=== PATIENT | female | born 1985 | race Caucasian/White ===

== ENCOUNTER 2017-11-01 20:38 | Inpatient (IN) ==
[2017-11-01 17:19] LABS: Basophils % 0.3 %; Eosinophils # 0.2 K/mcL (0.0-0.6); Eosinophils % 1.6 %; Hematocrit 40.4 % (35.3-44.9); Hemoglobin 14.3 g/dL (11.5-15.4); Immature Granulocytes % 0.4 % (0-4); Lymphocytes # 3.6 K/mcL (0.6-4.6); Lymphocytes % 26.8 %; Mean Corpuscular HGB Conc 35.4 g/dL (31.6-35.5); Mean Corpuscular Hemoglobin 32.9 pg (28.0-33.3); Mean Corpuscular Volume 92.9 fL (83.0-100.0); Mean Platelet Volume 10.4 fL (9.4-12.4); Monocytes # 0.9 K/mcL (0.0-1.3); Monocytes % 6.9 %; Neutrophils # 8.6 K/mcL (1.6-8.9); Platelet Count 344 K/mcL (140-400); Red Blood Count 4.35 M/mcL (3.82-4.97); Red Cell Distribution Width 12.4 % (11.5-14.5)
[2017-11-01 17:35] LABS: Amphetamine Screen,Urine Negative ng/mL (Cutoff=1000); Barbiturate Screen,Urine Negative ng/mL (Cutoff=200); Benzodiazepines Screen,Urine Negative ng/mL (Cutoff=200); Cannabinoid Screen,Urine Negative ng/mL (Cutoff = 50); Cocaine Screen,Urine Negative ng/mL (Cutoff= 300); Creatinine,Urine 35 mg/dL; Opiate Screen,Urine Negative ng/mL (Cutoff=300); Phencyclidine Screen,Urine Negative ng/mL (Cutoff=25); Protein/Creatinine Ratio,Urine 0.23 mg/mg (0.00-0.20)
[2017-11-01 17:37] LABS: Alanine Aminotransferase 17 Units/L (7-52); Aspartate Amino Transferase 22 Units/L (13-39); BUN/Creatinine Ratio 18 (6-26); Blood Urea Nitrogen 10 mg/dL (6-20); Lactate Dehydrogenase 156 Units/L (140-271); Uric Acid 4.5 mg/dL (2.3-7.6); eGFR For African Americans > 60 (> 60); eGFR For Non-African Americans > 60 (> 60)
--- NOTE | 2017-11-01 18:11 | OB/GYN Progress Note ---
Date of Encounter: 11/01/17 Time of Encounter: 18:07 - Assessment and Plan (1) 38 weeks gestation of Current Visit: Yes Status: Acute Patient admitted for observation (2) Elevated BP without diagnosis of hypertension Current Visit: Yes Status: Acute PIH labs and serial bps Discussed POC with Dr. Henry (3) Proteinuria affecting in third trimester Current Visit: Yes Status: Acute Protein creat ration WNL Subjective - Subjective Principal diagnosis: PIH evaluation Interval history: Patient is a 32 y/o @ 38w1d sent from OB office for PIH evaluation due to elevated BP and protein in urine. BP in office was 150/100. Patient denies headache, visual disturbances or epigastric pain. Patient reports +FM, denies LOF or VB. Patient does reports some mild swelling in feet and hands. Antepartum ROS: movement normal, no loss of fluid, no vaginal bleeding, no contractions Objective - Vital Signs Vital Signs: Intake and Output 11/01/17 11/01/17 11/01/17 07:59 15:59 23:59 Other: Weight 109.7 kg Patient Weight 11/01/17 23:59 Weight 109.7 kg - Exam FHR: auscultation normal, category 1 FHR comments: 120 bpm moderate amount of variability + 15x15 accels no decels noted. Contractions irregular Auscultation: bilateral: normal Abdomen: Present: normal appearance, soft, gravid Uterus: Present: normal, firm Comments: 2+ DTRs no clonus. 1+ edema bilateral lower extremities. - Labs Labs: Abnormal lab results WBC 13.4 K/mcL (4.3-11.1) H 11/01/17 16:55 Creatinine 0.55 mg/dL (0.60-1.20) L 11/01/17 16:55 Protein/Creatinin Ratio 0.23 mg/mg (0.00-0.20) H 11/01/17 16:55
--- NOTE | 2017-11-01 18:28 | Event Note ---
Date of Encounter: 11/01/17 Time of Encounter: 18:26 Discussed patient's lab results and BPs with Dr. Henry. Dr. Henry orders BPs hourly x 2 if BPs are above 140/90 to admit for delivery. Patient may have a regular diet at this time.
[~2017-11-01 20:38] MED LIST: *HR* Nalbuphine 10 MG/ML AMPUL IVP PRN; Famotidine 20 MG/2 ML VIAL IVP PRN; Naloxone 0.4 MG/ML INJ IVP PRN; Ondansetron 4 MG/2 ML VIAL IVP PRN
[2017-11-01] MEDS ORDERED: Ringers Solution, Lactated 1,000 ML IVC SCH (20:45)
--- NOTE | 2017-11-01 20:51 | OB/GYN History & Physical ---
Date of Encounter: 11/01/17 Time of Encounter: 20:42 Assessment and Plan (1) 38 weeks gestation of Current visit: Yes Status: Acute admitted for delivery (2) Proteinuria affecting in third trimester Current visit: Yes Status: Acute (3) Elevated BP without diagnosis of hypertension Current visit: Yes Status: Acute Will start Labetalol 100mg po BID History of Present Illness Chief complaint: Elevated BP HPI: Ms. Santos is a 32 year old female @ 38w1d sent from OB office for PIH evaluation due to elevated BP and protein in urine. BP in office was 150/100. Patient denies headache, visual disturbances or epigastric pain. Patient reports +FM, denies LOF or VB. Patient does reports some mild swelling in feet and hands. BPs continue after 4 hours of observation to be 153/92. Dr. Henry recommends IOL for gestational HTN at this time. Blood type:O+ Rubella: Immune Hep B: Nonreactive GBS: Negative Past Med Surg Social Fam HX - Past Medical History Source: patient Medical history: no medical history Psychiatric history: no psych history - Past Surgical History Surgical History: splenectomy - Social History Smoking Status: Never smoker Smokeless Tobacco Status: No Alcohol use: none Drug use: none Obstetrical History - Pregnancies : 1 Para: 0 Term: 0 : 0 Ab's: 0 Livin Medications and Allergies 3 Allergy/AdvReac Type Severity Reaction Status Date / Time No Known Allergies Allergy Verified 11/01/17 17:04 Review of System OB - Constitutional Constitutional ROS IM: no chills, no fever(s), no headache(s) - Cardiovascular Cardiovascular: edema, pedal edema, no chest pain, no lightheadedness, no palpitations, no syncope - Respiratory Respiratory: no cough - Gastrointestinal Gastrointestinal: no abdominal pain, no constipation, no cramping, no heartburn , no nausea, no vomiting - Genitourinary Genitourinary: no abnormal vaginal bleeding, no dysuria, no flank pain, no pelvic pain, no urinary frequency, no urinary urgency, no vaginal discharge, no vaginal odor, no vaginal pruritis - Neurological Nerological: no dizziness, no headache(s), no syncope Exam - Constitutional Constitutional: well developed, well nourished, no acute distress, average body habitus - HEENT HEENT: Normocephaly, Mucus Membranes Moist - Neck Neck exam: full ROM, supple - Lungs Respiratory exam: CTAB - Cardiovascular Cardiovascular exam: RRR, +S1, +S2 - Abdomen Abdomen: Present: bowel sounds normal, gravid, non tender - Extremities Extremities exam: full ROM Deep Tendon Reflex Grade: 2+ Normal - Uterus Uterus exam: Present: normal size, normal contour - Comments Comments: FHR 125 bpm moderate amount of variability +15x15 accels no decels noted. CAt. 1 tracing. Contractions 2-5 min apart. Results Result Diagrams: 11/01/17 16:55 11/01/17 16:55 Abnormal lab results WBC 13.4 K/mcL (4.3-11.1) H 11/01/17 16:55 Creatinine 0.55 mg/dL (0.60-1.20) L 11/01/17 16:55 Protein/Creatinin Ratio 0.23 mg/mg (0.00-0.20) H 11/01/17 16:55 All other labs normal. - VTE Reasons for not Prescribing Prophylaxis: Treatment not Indicated - Low risk for VTE
--- NOTE | 2017-11-01 21:47 | OB Labor Progress Note ---
Date of Encounter: 11/01/17 Time of Encounter: 21:45 Labor Progress Note - Subjective Subjective: Patient resting in bed. Discussed POC with patient. Patient denies any questions or concerns. - Cervix Cervix: 1/thick/-3 - Heart Tones Heart Tones: 125 bpm moderate amount of variability +15x15 accels no decels noted. CAt. 1 tracing - [place]: contractions 2-3 min apart - Interventions Interventions: SVE, Soliman catheter placed without if difficulty 40cc sterile water placed in soliman balloon. Patient tolerated well. - Plan Plan: Continue labor management
[2017-11-02] MEDS ORDERED: miSOPROStol 25 MCG TABLET PO SCH ×2 (03:45→04:00)
[2017-11-02] MEDS ORDERED: Oxytocin 20 units/ LR 1000 mL 20 UNIT/1,000 ML BAG IVC SCH ×2 (08:45→15:47)
--- NOTE | 2017-11-02 08:48 | OB Labor Progress Note ---
Date of Encounter: 11/02/17 Time of Encounter: 08:46 Labor Progress Note - Subjective Subjective: Patient comfortable and denies any complaints. - Vital Signs Vital Signs: 126/85 - Cervix Cervix: 4.5/80/-3 - Heart Tones Heart Tones: 123. category 1 tracing - Preston Preston: q 1.5- 2 minutes - Plan Plan: Will give order for Pitocin. Patient is not feeling her contractions that are on the monitor and minimal cervical changes.
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
[2017-11-02] MEDS ORDERED: Bupivacaine-MPF 0.25% 10 ML VIAL EP ONE (10:30)
[2017-11-02] MEDS ORDERED: *HR* FentaNYL (PF) 100 MCG/2 ML VIAL EP ONE (10:30)
[2017-11-02] MEDS ORDERED: Epidural Premix (fent/bupiv) 110 ML EP SCH (10:30)
[2017-11-02] MEDS ORDERED: Epidural Premix (fent/bupiv) 110 ML EP ONE (10:48)
--- NOTE | 2017-11-02 11:54 | Anesthesia Procedures ---
Date of Encounter: 11/02/17 Time of Encounter: 10:50 Procedures: Anesthesia - Epidural/Spinal Patient ID/Chart reviewed: Yes Patient examined: Yes OB Eval: Gestational age: 38 OB Eval: : 1 OB Eval: Hx Para: 0 OB Eval: Dilated at (cm): 6 OB Eval: Contractions: Non-stressed pattern Consent Obtained: Yes Supplemental Oxygen: None/Room Air Site Prep: Aseptic Technique, Sterile prep and drape, Povidone-Iodine 1% Patient position: upright Local Anesthetic: Lidocaine 1% Amount of Local Anesthetic used: 5 Touhy Needle Gauge: 18 Touhy Needle Depth (cm): 7 Catheter Depth at Skin (cm): 18 Test Dose (1.5% Lido + Epi): Volume given (mls): 3 Test Dose Result: Negative Loading Dose: 0.25% Marcaine (mls): 8 Loading Dose: Fentanyl (mcg): 100 Loading Dose Administered: Thru Catheter Infusion Rate (mls/hr): 0 (not started. complete, baby's heartrate dipping) Catheter Secured in Place: Tegaderm, Tape Interspace Used: L3-L4 Loss of Resistance (ALISSON): Yes Blood: No CSF: No Paresthesia: No Vitals + FHT's: 3 Vital Signs Time 1129 1130 1135 0985 [id number] BP 162/76 172/82 141/84 144/75 71 Pulse 75 60 75 72 110 FHTs 120 120 110 110
--- NOTE | 2017-11-02 12:15 | OB Labor Progress Note ---
Date of Encounter: 11/02/17 Time of Encounter: 11:50 Labor Progress Note - Subjective Subjective: Pt reports pain is improving with epidural - Cervix Cervix: 9.5/100/0 - Heart Tones Heart Tones: Category II, moderate variability, good scalp stim. - Colby Colby: 2-3 minutes - Interventions Interventions: FSE placed, pt repositioned multiple times, O2, IV fluid bolus - Plan Plan: COntinue to monitor. Anticipate .
--- NOTE | 2017-11-02 14:50 | OB/GYN Procedure Note ---
Delivery - Delivery Date: 11/02/17 Provider: Marely Kaplan (Hanna Lai DO PGY2) Intrapartum events: none Delivery induction: oxytocin, soliman, misoprostol Delivery monitor: external FHT, external uterine, internal FHT Anesthesia: epidural Estimated Blood Loss: 200 - (s) A Delivery Date: 11/02/17 Infant Delivery Time: 14:26 Presentation: vertex Position: ROP Route of delivery: Gender: Male Viability: Viable Pounds: 6 Ounces: 12 Weight Gram: 3055 kg at 1 minute: 9 at 5 mins: 9 Shoulder Dystocia: not encountered Specimens collected: cord blood Placenta: spontaneous Cord: nuchal cord (x2), 3 umbilical vessels, nuchal reduced - Repair Episiotomy: none Laceration Description: None - Complications Delivery complications: none Delivery comments: Patient progressed to complete and began pushing. Under maternal effort a viable male was delivered vertex, ROP with APGARS 9/9. The head delivered ROP and a nuchal x2 was discovered and easily reduced. The shoulders delivered easily and the body quickly followed. Baby was placed on maternal abdomen. Once pulsation stopped the cord was clamped and cut. The placenta delivered easily, intact with a 3 vessel cord. No lacerations were encountered. Sponge count completed and all were accounted for. Mother and baby were left bonding skin to skin in labor and delivery. Hanna Lai DO PGY2 present and assisted with delivery. I was present for the entire delivery including the delivery of the placenta. Bleeding minimal at the end of the procedure. Marely Kaplan DO - Disposition Mom disposition: stable in LDR [place] disposition: stable in LDR
[2017-11-02] MEDS ORDERED: Acetaminophen 325 MG TABLET PO PRN (15:47)
[2017-11-02] MEDS: Ibuprofen 600 MG TABLET PO PRN (20:14)
[2017-11-03] MEDS: Ibuprofen 600 MG TABLET PO PRN ×2 (04:40→09:51)
[2017-11-03 08:10] VITALS: BP 129/74
--- NOTE | 2017-11-03 08:45 | Discharge Summary ---
Date of Encounter: 11/03/17 Time of Encounter: 08:43 - Discharge Diagnosis (1) Vaginal delivery Priority: Primary Status: Acute Comments: Pt reports pain well controlled with PO meds Tolerating regular diet Voiding independently Passing flatus, but no BM yet Ambulating independently Lochia light well Discharge home today (2) Breast feeding status of mother Priority: Secondary Status: Acute - Discharge Medications Prescriptions: Ibuprofen [Motrin] 600 mg PO Q6HR PRN #30 tablet PRN Reason: Cramping Docusate [Colace] 100 mg PO BID #30 capsule Home Medications: Acetaminophen [Tylenol] 650 mg PO Q6HR PRN tablet 11/03/17 [Rx] Docusate [Colace] 100 mg PO BID #30 capsule 11/03/17 [Rx] Ibuprofen [Motrin] 600 mg PO Q6HR PRN #30 tablet 11/03/17 [Rx] Vit/FA 1 each PO DAILY tablet 11/03/17 [Rx] Allergies/Adverse Reactions: 3 Allergy/AdvReac Type Severity Reaction Status Date / Time No Known Allergies Allergy Verified 11/01/17 17:04 Data Procedures and tests throughout hospitalization: Laboratory Tests 11/01/17 11/01/17 11/01/17 16:55 16:55 16:55 WBC 13.4 H RBC 4.35 Hgb 14.3 Hct 40.4 MCV 92.9 MCH 32.9 MCHC 35.4 RDW 12.4 Plt Count 344 MPV 10.4 Immature Gran % 0.4 Seg Neutrophils % 64.0 Lymphocytes % 26.8 Monocytes % 6.9 Eosinophils % 1.6 Basophils % 0.3 Neutrophils # 8.6 Lymphocytes # 3.6 Monocytes # 0.9 Eosinophils # 0.2 Basophils # 0.0 BUN 10 Creatinine 0.55 L Est GFR ( Amer) > 60 Est GFR (Non-Af Amer) > 60 BUN/Creatinine Ratio 18 Uric Acid 4.5 AST 22 ALT 17 Lactate Dehydrogenase 156 Urine Creatinine 35 Protein/Creatinin Ratio 0.23 H Urine Total Protein 8 Urine Opiates Screen Negative Ur Barbiturates Screen Negative Ur Phencyclidine Scrn Negative Ur Amphetamines Screen Negative U Benzodiazepines Scrn Negative Urine Cocaine Screen Negative U Marijuana (THC) Screen Negative Date of admission: 11/01/17 20:38 Primary care physician: PCP NONE Consults: 11/02/17 15:47 Consult to Pattern Hanger [CONS] Routine Comment: Vaginal delivery, consult needed Discharging clinician: Nissa Colon Anticipated date of discharge: 11/03/17 - Patient Status Disposition: Home, Self-Care Condition: Good Functional capacity at discharge: independent ambulation Overall status at discharge: patient is progressing back to baseline - Discharge Instructions Follow Up With: NONE,PCP [Primary Care Provider] - Marely Kaplan DO [Partnered Physician] - - Diet and Activity Activity: increase activity as tolerated Diet: regular diet Hospital Course Reason for admission: induction of labor, IUP at term Delivery: Episiotomy: none Laceration: none Other procedures: none complications: none Discharge diagnosis: IUP at term delivered baby: male Time Attestation: Total time spent providing and/or coordinating discharge services: Time Spent: Less than 30 minutes Exam - Constitutional Vitals: Temp Pulse Resp BP Pulse Ox 98.2 F 65 14 129/74 97 11/03/17 08:09 11/03/17 08:09 11/03/17 08:09 11/03/17 08:09 11/03/17 08:09 General appearance IM: A&O X 3 - Respiratory Respiratory exam: Present: CTAB - Cardiovascular Cardiovascular exam IM: Present: RRR, +S1, +S2 - GI/Abdominal GI/Abdominal exam IM: normal bowel sounds, no peritoneal signs - Rectal Rectal exam: deferred - Uterine Tone: Firm Uterus Position: At Umbilicus, Midline - Extremities Exam Extremities exam IM: Present: normal inspection, radial pulses palpable and symmetrical - Neurological Exam Neurological exam: alert, oriented X3 - Psychiatric Additional comments: Pt feeling mentally well. No history of depression. S/sx of PPD discussed and pt verbalized understanding of when to call. - Other Additional findings: Breasts: Some nipple soreness. No erythema. Soft and non-tender.
[2017-11-03] MEDS ORDERED: Prenatal Vit/FA 1 EACH TABLET PO SCH (09:00)
== END 2017-11-03 15:48 | disposition home or self-care (01) | DRG 775 ==
LOC: 1NENULAB → 1NENUOBS 11-02 15:46
PROVIDERS: ADMIT Advanced Practice Midwife; ATTEND Advanced Practice Midwife